=== PATIENT | female | born 1970 | race Two or more races ===

== ENCOUNTER 2020-11-03 06:55 | Day surgery (SDC) | payer OTHER ==
[~2020-11-03 06:55] MED LIST: ALTACE10 MG PO
== END 2020-11-03 19:35 | disposition home or self-care (01) ==
LOC: CIR.AMB 06:55
PROVIDERS: ATTEND Surgery
DX: D24.1 Benign neoplasm of right breast (principal); Z20.822 Contact with and (suspected) exposure to COVID-19